=== PATIENT | female | born 1965 | race African-American/Black ===

== ENCOUNTER 2018-04-02 09:19 | Inpatient (IN) | payer OTHER ==
[~2018-04-02 09:19] MED LIST: DEXAMETHASONE SOD PHOS 4 MG/ML VIAL ONE; LACTATED RINGERS 1,000 ML IV.SOLN IV ONE; LIDOCAINE HCL/PF 2% 100 MG/5 ML VIAL IJ ONE; ONDANSETRON HCL/PF 4 MG/ 2ML VIAL ONE; PROPOFOL 200 MG/20 ML VIAL IV ONE; PROPOFOL 500 MG/50 ML VIAL IV ONE; ROCURONIUM BROMIDE 10 MG/ML 5ML VIAL ONE; SCOPOLAMINE HYDROBROMIDE 1.5MG/72HR PATCH TD ONE; SUGAMMADEX 200 mg/2mL 200 MG/2 ML VIAL IV ONE; ceFAZolin SODIUM 1 GM VIAL ONE; diphenhydrAMINE HCL 50 MG/ML VIAL ONE
[2018-04-02] MEDS ORDERED: SCOPOLAMINE HYDROBROMIDE 1.5MG/72HR PATCH TD ONE (09:49)
[2018-04-02] MEDS ORDERED: LEVALBUTEROL HCL 1.25 MG/3 ML AMPUL.NEB NEB ONE (09:52)
[2018-04-02] MEDS ORDERED: FAMOTIDINE/PF 20 MG/2 ML VIAL ONE (09:53)
[2018-04-02] MEDS ORDERED: LACTATED RINGERS 1,000 ML IV ONE (09:53)
[2018-04-02] MEDS ORDERED: ENOXAPARIN SODIUM 40 MG/0.4 ML DISP.SYRIN SQ ONE (10:46)
[2018-04-02] MEDS: MORPHINE SULFATE 4 MG/ML PREFILLED SYR IVP PRN ×3 (15:22→21:02)
[2018-04-02] MEDS ORDERED: 0.9 % SODIUM CHLORIDE 1,000 ML IV SCH (16:00)
--- NOTE | 2018-04-02 16:45 | History and Physical Report ---
History of Present Illnes - History of Present Illness Reason for Visit: Morbid obesity History of Present Illness: Patient with obesity since childhood who has tried dietary programs, medications and exercise to lose weight, but has not been successful in losing any weight. Her current comorbidities that are exacerbated by her obesity are hypertension, type II diabetes, obstructive sleep apnea and dyslipidemia. She presented to [facility] for gastric sleeve and was felt to be a candidate for this procedure. This was preformed in the OR today by Dr Garg, and she had no complications with her case. Her postoperative course has been unremarkable. - Past Medical History Cardiac: HTN, Hyperlipidemia Pulmonary: Sleep Apnea Psych: Anxiety, Depression Musculoskeletal: Chronic low back pain, Osteoarthritis Endocrine: Diabetes, obesity - Past Surgical History Past Surgical History: Hysterectomy, Other (Tubal, hemorrhoid surgery, tubal ligation) - Past Social History Smoke: No Alcohol: None Drugs: None Lives: With Family Domestic Violence: Negative - Health Maintenance Health Maintenance: Cholesterol Influenza Vaccine: Current for this Influenza Season Pneumonia Vaccine: Yes Resuscitation Status: Resusciation Status Resuscitation Status Full Code - Unable to Obtain History Unable to Obtain: Yes Review of Systems - Review of Systems Constitutional: negative: Fever, Chills Eyes: negative: pain ENT: negative: Ear Pain Respiratory: negative: Cough, Dry Cardiovascular: negative: Chest Pain Gastrointestinal: Nausea. negative: Vomiting Genitourinary: negative: Dysuria Musculoskeletal: negative: Neck Pain Skin: negative: Rash, Lesions Neurological: negative: Weakness - Medications/Allergies Allergies/Adverse Reactions: Allergies Allergy/AdvReac Type Severity Reaction Status Date / Time lisinopril AdvReac Cough Verified 04/02/18 16:51 Home Medications: Home Medications Acetaminophen [Tylenol Extra Strength] 500 mg PO Q4 PRN 04/02/18 Allopurinol [Zyloprim] 100 mg PO QD 04/02/18 Atorvastatin Calcium [Lipitor] 40 mg PO HS 04/02/18 Bupropion HCl [Wellbutrin Xl] 300 mg PO D 04/02/18 Bupropion HCl [Wellbutrin Xl] 300 mg PO D 04/02/18 Famotidine [Pepcid] 20 mg PO D PRN 04/02/18 Gabapentin 300 mg PO TID 04/02/18 Glipizide 10 mg PO BID 04/02/18 Insulin Glargine,Hum.rec.anlog [Lantus Solostar] 100 units SQ HS 04/02/18 amLODIPine BESYLATE [Norvasc] 10 mg PO 0900 04/02/18 Current Inpatient Medications: Current Inpatient Medications Sodium Chloride (Normal Saline) 1,000 mls @ 150 mls/hr IV Q6H [facility] Ketorolac Tromethamine (Toradol) 30 mg IVP Q6H PRN PRN Reason: PAIN 1-4 IF CANT USE NORCO Stop: 04/06/18 15:08 Miscellaneous (Patient Own Med) 1 each SQ DAILY [facility] Morphine Sulfate (Depodur) 4 mg IVP Q2H PRN PRN Reason: Severe Pain 8-10 Last Admin: 04/02/18 15:22 Dose: 4 mg Exam - Exam Vital Signs: Vital Signs (72 hours) 04/02/18 14:46 Temperature 99.4 F Pulse Rate [ 104 H Right Pulse ox] Respiratory 22 Rate Blood Pressure 154/90 [Right Radial Artery] O2 Sat by Pulse 98 Oximetry General: Alert (a little sleepy from anesthesia/pain medication), Oriented to Person, Morbidly Obese HEENT: Atraumatic, PERRLA, EOMI Neck: No: Stridor Lungs: Clear to auscultation, Normal air movement, Speaks full Sentences. 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 insulin use: with fdc use Diabetes mellitus complication status: without complication Qualified Code(s): E11.9 - Type 2 diabetes mellitus without complications; Z79.4 - ocean transportation intermediary (current) use of insulin Assessment: Hold glyburide and insulin due to decreased oral intake Plan: Chem sticks (3) Hypertension Status: Acute Current Visit: Yes Qualifiers: Hypertension type: essential hypertension Qualified Code(s): I10 - Essential (primary) hypertension Assessment: Continue amlodipine (4) Depression Status: Acute Current Visit: Yes Qualifiers: Depression Type: major depressive disorder Active/Remission status: currently active Major depression episode severity: moderate Assessment: Continue bupropion (5) Hyperlipemia Status: Acute Current Visit: Yes Qualifiers: Hyperlipidemia type: pure hypercholesterolemia Qualified Code(s): E78.00 - Pure hypercholesterolemia, unspecified; E78.0 - Pure hypercholesterolemia Assessment: Continue Lipitor (6) Obstructive sleep apnea Status: Acute Current Visit: Yes Assessment: Continue CPAP use (7) Gout Status: Acute Current Visit: Yes Qualifiers: Gout site: unspecified site Gout etiology: unspecified cause Chronicity: chronic Presence of tophus: without tophus Qualified Code(s): M1A.9XX0 - Chronic gout, unspecified, without tophus (tophi) Assessment: Continue allopurinol VTE Assessment - RISK FACTOR SCORE VTE RISK FACTOR SCORES: AGE 40-60 YEARS, OBESITY (On Lovenox)
[2018-04-02 16:58] VITALS: BMI 50.8
[2018-04-02] MEDS ORDERED: LEVALBUTEROL HCL 1.25 MG/3 ML VIAL.NEB IH PRN (17:00)
[2018-04-02] MEDS ORDERED: FAMOTIDINE 20 MG TABLET PO SCH (17:00)
[2018-04-02] MEDS ORDERED: ONDANSETRON HCL/PF 4 MG/ 2ML VIAL IVP PRN (17:07)
[2018-04-02] MEDS ORDERED: PROMETHAZINE HCL 25 MG in 0.9 % SODIUM CHLORIDE 50 ML IV PRN (17:09)
[2018-04-02] MEDS ORDERED: HYDROCODONE/ACETAMINOPHEN 15 ML SOLUTION PO PRN (17:11)
[2018-04-02] MEDS: DEXTROSE IV SCH (17:48)
[2018-04-02] MEDS: CEFAZOLIN IV SCH (17:48)
[2018-04-02] MEDS: 0.9 % SODIUM CHLORIDE 1,000 ML IV SCH (17:48)
[2018-04-02] MEDS: GABAPENTIN 300 MG CAPSULE PO SCH (18:37)
[2018-04-02] MEDS: METOPROLOL TARTRATE 25 MG TABLET PO SCH (21:04)
[2018-04-02] MEDS: buPROPion 150 MG TAB.ER.12H PO SCH (21:04)
[2018-04-02] MEDS: traZODone HCL 50 MG TABLET PO SCH (21:04)
[2018-04-02] MEDS: ATORVASTATIN CALCIUM 80 MG TABLET PO SCH (21:30)
[2018-04-02] MEDS: FAMOTIDINE/PF 20 MG/2 ML VIAL IV SCH (21:31)
[2018-04-03] MEDS: CEFAZOLIN IV SCH (02:21)
[2018-04-03] MEDS: DEXTROSE IV SCH (02:21)
[2018-04-03] MEDS: 0.9 % SODIUM CHLORIDE 1,000 ML IV SCH ×4 (02:49→23:08)
[2018-04-03] MEDS: KETOROLAC TROMETHAMINE 30 MG/1ML VIAL IVP PRN (07:56)
[2018-04-03] MEDS: METOPROLOL TARTRATE 25 MG TABLET PO SCH (08:35)
[2018-04-03] MEDS: GABAPENTIN 300 MG CAPSULE PO SCH ×3 (08:36→18:24)
[2018-04-03] MEDS: FAMOTIDINE/PF 20 MG/2 ML VIAL IV SCH ×2 (08:37→21:13)
[2018-04-03] MEDS: ALLOPURINOL 100 MG TABLET PO SCH (08:38)
[2018-04-03] MEDS: buPROPion 150 MG TAB.ER.12H PO SCH (08:39)
[2018-04-03] MEDS ORDERED: amLODIPine BESYLATE 5 MG TABLET PO SCH (09:00)
[2018-04-03] MEDS ORDERED: PATIENT OWN MED 1 EACH EACH SQ SCH (09:00)
[2018-04-03] MEDS ORDERED: ENOXAPARIN SODIUM 40 MG/0.4 ML DISP.SYRIN SQ SCH (09:00)
[2018-04-03 09:28] LABS: BASOPHILS % 0.3 (0.0-1.5); EOSINOPHILS % 0.7 % (0.0-6.8); MONOCYTES % 4.1 % (0.0-11.0)
[2018-04-03 09:29] LABS: NEUTROPHILS # 11.5 # k/uL (1.4-7.7)
[2018-04-03] MEDS ORDERED: 0.9 % SODIUM CHLORIDE 500 ML IV ONE ×2 (11:20→11:30)
--- NOTE | 2018-04-03 11:28 | Inpatient Progress Note ---
Subjective - Required Recertification Statement I anticipate X number of days because-include discharge plan: 1 day - Review of Systems Events since last encounter: Patient states that she has been having some pain in the RUQ area and in generalized abd area. Has been feeling weak. Pain has been moderate. Has not had any flatus. Has been up ambulating last night. Has not ambulated this AM. Has been taking oral intake as ordered. Has had some nausea but no vomiting noted. Patient has been more lethargic this AM with some hallucinations. Objective - Exam Vitals and I&O: Vital Signs Temp 98 F 04/03/18 10:00 Pulse 91 H 04/03/18 10:00 Resp 20 04/03/18 10:00 BP 92/55 04/03/18 10:00 Pulse Ox 93 04/03/18 10:00 Intake & Output 04/02/18 04/02/18 04/03/18 11:59 23:59 11:59 Intake Total 50 2620 Output Total 640 200 Balance -590 2420 Weight 147.418 kg Intake: IV 2200 Left Upper arm 2200 Oral 50 420 Output: Urine 640 200 Other: Voiding Method Toilet Toilet # Voids 2 1 # Bowel Movements 0 General: Alert, Oriented to Person, Oriented to Place, Oriented to Time, Cooperative, Morbidly Obese Neck: Supple Lungs: Clear to auscultation, Normal air movement, Speaks full Sentences. No: Wheezes, Rales, Rhonchi Cardiovascular: Regular rate, Normal S1, Normal S2, No murmurs Abdomen: Soft, Other (mild diffuse tenderness noted), Decreased Bowel Sounds. No: Distended Extremities: No clubbing, No cyanosis, No edema, Normal pulses Skin: Normal, Warm Neurological: Normal speech, Strength Equal Bilat Psych/Mental Status: Mental status NL (mildlylethargic), Mood NL, Appropriate Affect, Intact Judgment - Results Results: Laboratory Results WBC 13.50 K/ul (4.00-12.00) H 04/03/18 08:14 RBC 3.00 M/ul (3.90-5.20) L 04/03/18 08:14 Hgb 9.6 g/dL (12.0-16.0) L 04/03/18 08:14 Hct 28.3 % (34.5-46.5) L 04/03/18 08:14 MCV 94.0 fl (80.0-100.0) 04/03/18 08:14 MCH 32.0 pg (28.0-34.0) 04/03/18 08:14 MCHC 33.8 g/dL (30.0-36.0) 04/03/18 08:14 RDW 13.0 % (11.3-14.3) 04/03/18 08:14 Plt Count 235 K/mm3 (130-400) 04/03/18 08:14 Neut % (Auto) 85.2 % (39.0-79.0) H 04/03/18 08:14 Lymph % (Auto) 9.7 % (16.0-50.0) L 04/03/18 08:14 [place] % (Auto) 4.1 % (0.0-11.0) 04/03/18 08:14 Eos % (Auto) 0.7 % (0.0-6.8) 04/03/18 08:14 Baso % (Auto) 0.3 (0.0-1.5) 04/03/18 08:14 Neut # (Auto) 11.5 # k/uL (1.4-7.7) H 04/03/18 08:14 Lymph # (Auto) 1.3 # k/uL (0.6-4.0) 04/03/18 08:14 [place] # (Auto) 0.6 # k/uL (0.0-0.9) 04/03/18 08:14 Eos # (Auto) 0.1 # k/uL (0.0-0.6) 04/03/18 08:14 Baso # (Auto) 0.0 # k/uL (0.0-0.5) 04/03/18 08:14 Sodium 135 mmol/L (136-145) L 04/03/18 08:14 Potassium 4.8 mmol/L (3.5-5.1) 04/03/18 08:14 Chloride 103 mmol/L (98-107) 04/03/18 08:14 Carbon Dioxide 21 mmol/L (22-30) L 04/03/18 08:14 BUN 18 mg/dL (7-17) H 04/03/18 08:14 Creatinine 2.70 mg/dL (0.52-1.04) H 04/03/18 08:14 Estimated Creat Clear 65 04/03/18 08:14 Est GFR ( Amer) 24 (60-) L 04/03/18 08:14 Est GFR (Non-Af Amer) 20 (60-) L 04/03/18 08:14 Glucose 221 mg/dL (74-106) H 04/03/18 08:14 Calcium 8.4 mg/dL (8.4-10.2) 04/03/18 08:14 Total Bilirubin 0.7 mg/dL (0.2-1.3) 04/03/18 08:14 AST 70 U/L (15-46) H 04/03/18 08:14 ALT 80 U/L (13-69) H 04/03/18 08:14 Alkaline Phosphatase 74 U/L (38-126) 04/03/18 08:14 Total Protein 6.6 g/dL (6.3-8.2) 04/03/18 08:14 Albumin 3.4 g/dL (3.5-5.0) L 04/03/18 08:14 Assessment/Plan - Assessment/Plan (1) Morbid obesity Status: Acute Current Visit: Yes Assessment: POD #1 Patient is ambulatory, taking oral intake. Of concern is that her Hgb has dropped to 9.6 from preop of 12. Patient is not tachycardic at this time. I have called Dr Garg and he did not feel that she would be having any bleeding problems. He advised to monitor and recheck in AM. I have ordered H/H for 1600 today. (2) Depression Status: Acute Current Visit: Yes Qualifiers: Depression Type: major depressive disorder Active/Remission status: currently active Major depression episode severity: moderate Assessment: Has had bupropion this AM. This may be causing some lethargy and hallucinations. Will hold for now. (3) Diabetes mellitus Status: Acute Current Visit: Yes Qualifiers: Diabetes mellitus type: type 2 Diabetes mellitus usp insulin use: with usp use Diabetes mellitus complication status: without complication Qualified Code(s): E11.9 - Type 2 diabetes mellitus without complications; Z79.4 - half-way (current) use of insulin Assessment: BS have been in the 150-200 range. No hypoglycemic episdoes noted. (4) Hypertension Status: Acute Current Visit: Yes Qualifiers: Hypertension type: essential hypertension Qualified Code(s): I10 - Essential (primary) hypertension Assessment: Patient's systolic BP has been running in the 90-100 range. Will continue to monitor.
[2018-04-03] MEDS ORDERED: 0.9 % SODIUM CHLORIDE 1,000 ML IV SCH ×2 (11:30→13:00)
[2018-04-03 11:38] LABS: BASOPHILS % 0.3 (0.0-1.5); EOSINOPHILS % 0.9 % (0.0-6.8); MEAN CORPUSCULAR HEMOGLOBIN 31.4 pg (28.0-34.0); MONOCYTES % 4.2 % (0.0-11.0); NEUTROPHILS # 12.6 # k/uL (1.4-7.7)
[2018-04-03 17:25] LABS: MEAN CORPUSCULAR HEMOGLOBIN 31.5 pg (28.0-34.0)
[2018-04-03 17:26] LABS: BASOPHILS % 0.3 (0.0-1.5); EOSINOPHILS % 1.2 % (0.0-6.8); MONOCYTES % 4.7 % (0.0-11.0); NEUTROPHILS # 13.6 # k/uL (1.4-7.7)
[2018-04-03] MEDS: traZODone HCL 50 MG TABLET PO SCH (20:57)
[2018-04-03] MEDS: ATORVASTATIN CALCIUM 80 MG TABLET PO SCH (21:13)
[2018-04-04] MEDS: KETOROLAC TROMETHAMINE 30 MG/1ML VIAL IVP PRN (00:38)
[2018-04-04 07:37] LABS: BASOPHILS % 0.3 (0.0-1.5); EOSINOPHILS % 1.1 % (0.0-6.8); MEAN CORPUSCULAR HEMOGLOBIN 31.7 pg (28.0-34.0); MONOCYTES % 4.8 % (0.0-11.0); NEUTROPHILS # 8.4 # k/uL (1.4-7.7)
[2018-04-04] MEDS ORDERED: 0.9 % SODIUM CHLORIDE 50 ML IV ONE (08:35)
[2018-04-04] MEDS: FAMOTIDINE/PF 20 MG/2 ML VIAL IV SCH (08:42)
[2018-04-04] MEDS: ALLOPURINOL 100 MG TABLET PO SCH (08:42)
[2018-04-04] MEDS: GABAPENTIN 300 MG CAPSULE PO SCH ×3 (08:42→17:43)
--- NOTE | 2018-04-04 09:46 | Inpatient Progress Note ---
Subjective - Required Recertification Statement I anticipate X number of days because-include discharge plan: 2 days - Review of Systems Events since last encounter: This AM patient became hypotensive with systolic into the 70s. Patient tolerated it well and was lucent. recheck HG was found to be 8.9. Patient was given Amlodipine 10mg and metoprolol 25mg this AM and then her blood pressure dropped. She was also noted to have an elevated Creatinine of 2.7. After conferring with Dr Garg it was felt that the patient may be dehydrated some and with lower systolic BP at baseline and then given BP med that that was what was causing her hypotension. After 1500 cc bolus her BP did start to improve. Her mentation improved also. Patient seems to be feeling better at this time. Objective - Exam Vitals and I&O: Vital Signs Temp 100.1 F H 04/04/18 09:27 Pulse 98 H 04/04/18 09:27 Resp 16 04/04/18 09:27 BP 99/61 04/04/18 09:27 Pulse Ox 92 04/04/18 09:27 Intake & Output 04/03/18 04/03/18 04/04/18 11:59 23:59 11:59 Intake Total 2620 3310 1365 Output Total 200 240 150 Balance 2420 3070 1215 Intake: IV 2200 2950 975 Left Upper arm 2200 500 0 right AC 2450 975 Oral 420 360 390 Output: Urine 200 240 150 Other: Voiding Method Toilet Toilet Toilet # Voids 1 1 2 General: Alert, Oriented to Person, Oriented to Place, Oriented to Time Lungs: Clear to auscultation Cardiovascular: Regular rate - Results Results: Laboratory Results WBC 11.40 K/ul (4.00-12.00) 04/04/18 07:30 RBC 2.33 M/ul (3.90-5.20) L 04/04/18 07:30 Hgb 7.4 g/dL (12.0-16.0) L 04/04/18 07:30 Hct 21.9 % (34.5-46.5) L 04/04/18 07:30 MCV 94.0 fl (80.0-100.0) 04/04/18 07:30 MCH 31.7 pg (28.0-34.0) 04/04/18 07:30 MCHC 33.6 g/dL (30.0-36.0) 04/04/18 07:30 RDW 13.1 % (11.3-14.3) 04/04/18 07:30 Plt Count 169 K/mm3 (130-400) 04/04/18 07:30 Neut % (Auto) 73.4 % (39.0-79.0) 04/04/18 07:30 Lymph % (Auto) 20.4 % (16.0-50.0) 04/04/18 07:30 [place] % (Auto) 4.8 % (0.0-11.0) 04/04/18 07:30 Eos % (Auto) 1.1 % (0.0-6.8) 04/04/18 07:30 Baso % (Auto) 0.3 (0.0-1.5) 04/04/18 07:30 Neut # (Auto) 8.4 # k/uL (1.4-7.7) H 04/04/18 07:30 Lymph # (Auto) 2.3 # k/uL (0.6-4.0) 04/04/18 07:30 [place] # (Auto) 0.6 # k/uL (0.0-0.9) 04/04/18 07:30 Eos # (Auto) 0.1 # k/uL (0.0-0.6) 04/04/18 07:30 Baso # (Auto) 0.0 # k/uL (0.0-0.5) 04/04/18 07:30 Sodium 137 mmol/L (136-145) 04/04/18 07:30 Potassium 4.1 mmol/L (3.5-5.1) 04/04/18 07:30 Chloride 108 mmol/L (98-107) H 04/04/18 07:30 Carbon Dioxide 24 mmol/L (22-30) 04/04/18 07:30 BUN 26 mg/dL (7-17) H 04/04/18 07:30 Creatinine 2.40 mg/dL (0.52-1.04) H 04/04/18 07:30 Estimated Creat Clear 74 12 07:30 Est GFR ( Amer) 27 (60-) L 04/04/18 07:30 Est GFR (Non-Af Amer) 22 (60-) L 04/04/18 07:30 Glucose 164 mg/dL (74-106) H 04/04/18 07:30 Calcium 7.7 mg/dL (8.4-10.2) L 04/04/18 07:30 Total Bilirubin 0.7 mg/dL (0.2-1.3) 04/03/18 08:14 AST 70 U/L (15-46) H 04/03/18 08:14 ALT 80 U/L (13-69) H 04/03/18 08:14 Alkaline Phosphatase 74 U/L (38-126) 04/03/18 08:14 Total Protein 6.6 g/dL (6.3-8.2) 04/03/18 08:14 Albumin 3.4 g/dL (3.5-5.0) L 04/03/18 08:14 Assessment/Plan - Assessment/Plan (1) Morbid obesity Status: Acute Current Visit: Yes (2) Depression Status: Acute Current Visit: Yes Qualifiers: Depression Type: major depressive disorder Active/Remission status: currently active Major depression episode severity: moderate (3) Diabetes mellitus Status: Acute Current Visit: Yes Qualifiers: Diabetes mellitus type: type 2 Diabetes mellitus care home insulin use: with care home use Diabetes mellitus complication status: without complication Qualified Code(s): E11.9 - Type 2 diabetes mellitus without complications; 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 Will continue to monitor. BP meds have been discontinued. Awaiting results from CBC
--- NOTE | 2018-04-04 11:31 | Inpatient Progress Note ---
Subjective - Required Recertification Statement I anticipate X number of days because-include discharge plan: 1 - Review of Systems Events since last encounter: Patient is clinically improved. Her pain continues to improve. She has now been able to get up and walk, however her hemoglobin as dropped from 9.0 to 7.4 today, and her renal function remains much compromised. I have spoken with Dr. Garg and he has recommended a CT scan without contrast which has now been ordered. He is considering giving her some O negative blood. Lab cannot currently type and screen, so type specific crossmatch cannot be accomplished currently. He also states that he will come and see her today. She is currently down having her CT scan done. General: Fatigue. Denies: Chills, Night Sweats HEENT: Denies: Head Aches, Visual Changes Pulmonary: Denies: Dyspnea, Cough Cardiovascular: Chest Pain (left sided, much better now.) Gastrointestinal: Nausea, Abdominal Pain (lower abdominal). Denies: Vomiting Genitourinary: Denies: Dysuria, Frequency Musculoskeletal: Denies: Neck Pain Neurological: Weakness. Denies: Change in Speech Objective - Exam Vitals and I&O: Vital Signs Temp 100.1 F H 04/04/18 09:27 Pulse 98 H 04/04/18 09:27 Resp 16 04/04/18 09:27 BP 99/61 04/04/18 09:27 Pulse Ox 92 04/04/18 09:27 Intake & Output 04/03/18 04/03/18 04/04/18 11:59 23:59 11:59 Intake Total 2620 3310 1905 Output Total 200 240 150 Balance 2420 3070 1755 Intake: IV 2200 2950 1425 Left Upper arm 2200 500 450 right AC 2450 975 Oral 420 360 480 Output: Urine 200 240 150 Other: Voiding Method Toilet Toilet Toilet # Voids 1 1 2 General: Alert, Oriented to Person, Oriented to Place, Moderate distress (due to abdomnina pain), Morbidly Obese HEENT: Atraumatic, PERRLA, EOMI Neck: Supple, No JVD Lungs: Decreased Air Movement Cardiovascular: Regular rate Abdomen: Normal bowel sounds, Soft Extremities: No: No clubbing, No cyanosis Skin: Normal, Pale Neurological: Normal speech Psych/Mental Status: Mental status NL - Results Results: Laboratory Results WBC 11.40 K/ul (4.00-12.00) 04/04/18 07:30 RBC 2.33 M/ul (3.90-5.20) L 04/04/18 07:30 Hgb 7.4 g/dL (12.0-16.0) L 04/04/18 07:30 Hct 21.9 % (34.5-46.5) L 04/04/18 07:30 MCV 94.0 fl (80.0-100.0) 04/04/18 07:30 MCH 31.7 pg (28.0-34.0) 04/04/18 07:30 MCHC 33.6 g/dL (30.0-36.0) 04/04/18 07:30 RDW 13.1 % (11.3-14.3) 04/04/18 07:30 Plt Count 169 K/mm3 (130-400) 04/04/18 07:30 Neut % (Auto) 73.4 % (39.0-79.0) 04/04/18 07:30 Lymph % (Auto) 20.4 % (16.0-50.0) 04/04/18 07:30 [place] % (Auto) 4.8 % (0.0-11.0) 04/04/18 07:30 Eos % (Auto) 1.1 % (0.0-6.8) 04/04/18 07:30 Baso % (Auto) 0.3 (0.0-1.5) 04/04/18 07:30 Neut # (Auto) 8.4 # k/uL (1.4-7.7) H 04/04/18 07:30 Lymph # (Auto) 2.3 # k/uL (0.6-4.0) 04/04/18 07:30 [place] # (Auto) 0.6 # k/uL (0.0-0.9) 04/04/18 07:30 Eos # (Auto) 0.1 # k/uL (0.0-0.6) 04/04/18 07:30 Baso # (Auto) 0.0 # k/uL (0.0-0.5) 04/04/18 07:30 Sodium 137 mmol/L (136-145) 04/04/18 07:30 Potassium 4.1 mmol/L (3.5-5.1) 04/04/18 07:30 Chloride 108 mmol/L (98-107) H 04/04/18 07:30 Carbon Dioxide 24 mmol/L (22-30) 04/04/18 07:30 BUN 26 mg/dL (7-17) H 04/04/18 07:30 Creatinine 2.40 mg/dL (0.52-1.04) H 04/04/18 07:30 Estimated Creat Clear 74 04/04/18 07:30 Est GFR ( Amer) 27 (60-) L 04/04/18 07:30 Est GFR (Non-Af Amer) 22 (60-) L 04/04/18 07:30 Glucose 164 mg/dL (74-106) H 04/04/18 07:30 Calcium 7.7 mg/dL (8.4-10.2) L 04/04/18 07:30 Total Bilirubin 0.7 mg/dL (0.2-1.3) 04/03/18 08:14 AST 70 U/L (15-46) H 04/03/18 08:14 ALT 80 U/L (13-69) H 04/03/18 08:14 Alkaline Phosphatase 74 U/L (38-126) 04/03/18 08:14 Total Protein 6.6 g/dL (6.3-8.2) 04/03/18 08:14 Albumin 3.4 g/dL (3.5-5.0) L 04/03/18 08:14 Assessment/Plan - Assessment/Plan (1) Morbid obesity Status: Acute Current Visit: Yes Assessment: S/P gastric sleeve, now with postoperative anemia and compromised renal function (2) Diabetes mellitus Status: Acute Current Visit: Yes Qualifiers: Diabetes mellitus type: type 2 Diabetes mellitus docket specialist insulin use: with docket specialist use Diabetes mellitus complication status: without complication Qualified Code(s): E11.9 - Type 2 diabetes mellitus without complications; Z79.4 - nursing home (current) use of insulin Assessment: Still hypoglycemic (3) Hypertension Status: Acute Current Visit: Yes Qualifiers: Hypertension type: essential hypertension Qualified Code(s): I10 - Essential (primary) hypertension (4) Depression Status: Acute Current Visit: Yes Qualifiers: Depression Type: major depressive disorder Active/Remission status: currently active Major depression episode severity: moderate (5) Hyperlipemia Status: Acute Current Visit: Yes Qualifiers: Hyperlipidemia type: pure hypercholesterolemia Qualified Code(s): E78.00 - Pure hypercholesterolemia, unspecified; E78.0 - Pure hypercholesterolemia (6) Obstructive sleep apnea Status: Acute Current Visit: Yes (7) Gout Status: Acute Current Visit: Yes Qualifiers: Gout site: unspecified site Gout etiology: unspecified cause Chronicity: chronic Presence of tophus: without tophus Qualified Code(s): M1A.9XX0 - Chronic gout, unspecified, without tophus (tophi) (8) Postoperative anemia Status: Acute Current Visit: Yes Assessment: CT scan just performed, awaiting results Dr. Garg to see today.
[2018-04-04 15:15] LABS: MEAN CORPUSCULAR HEMOGLOBIN 31.7 pg (28.0-34.0)
[2018-04-04] MEDS ORDERED: ACETAMINOPHEN 325 MG TABLET PO PRN (15:34)
[2018-04-04] MEDS: 0.9 % SODIUM CHLORIDE 1,000 ML IV SCH ×4 (15:36→23:24)
[2018-04-04] MEDS ORDERED: DIPHENHYDRAMINE HCL 25 MG/10 ML UD CUP PO SCH (16:00)
--- NOTE | 2018-04-04 16:19 | Diagnostic Imaging Report ---
[facility]MED [facility]G [facility] [id number] Counts Include [address] Beds At [facility] [address] [place], [place]. [address] Report Submission Date: Apr 04, 2018 12:51:18 PM MACHINE STEMMER Patient Study Name: MISA LEE Date: Apr 04, 2018 11:45:05 AM MACHINE STEMMER Modality Type: CT\SR Gender: F Description: CT ABD PELVIS W/O CO : 65 Institution: [facility] Physician: [facility]/MED SURG Examination: CT Abdomen/pelvis History: GASTRIC SLEEVE SURGERY ON 04/02/18. PT STATES TUBAL LIGATION AND NO OTHER SURGERIES. CREATININE 2.4 (Hx) dropping Hgb Comparison exams: None available Technique: CT Abdomen/pelvis without IV protocol. Findings: Liver, spleen, adrenals, pancreas and kidneys are without gross irregularity given exam technique. Gallbladder hyperdense. Punctate right renal calyceal calcifications. No suspicious left-sided calcifications. Ureters are nondilated in their course through the abdomen and pelvis. No central calcifications. Bladder margin within normal limits. Pelvic phleboliths. Abdominal aorta without aneurysm. Minimal peripheral atherosclerotic disease. Cardiac silhouette is not enlarged. No pericardial effusion. Upper abdominal postsurgical changes involving the gastric region. Conglomeration of unopacified bowel within the mid anterior abdomen. Remaining bowel without abnormal dilation. Mesenteric stranding and likely fluid within the mid abdominal mesenteric region and adjacent to the cecum. Anterior soft tissue postsurgical changes. Osseous structures demonstrate degenerative changes. Lung bases demonstrate linear densities bilaterally. No effusion. Impression: Gastric region postsurgical changes. Abdominal mesenteric stranding and regions what is of what is likely fluid as described - nonspecific etiology: possibly represents residual postsurgical changes though acute process cannot be excluded. No acute upper abdominal organ process. Hyperdense gallbladder. Right nephrolithiasis. No abnormal ureteric dilation. Lung base linear infiltrates. No effusion. Electronically signed on Apr 04, 2018 12:51:18 PM MACHINE STEMMER by: Malcolm DESAI
[2018-04-04] MEDS ORDERED: cefTRIAXone SODIUM 1 GM in 0.9 % SODIUM CHLORIDE 100 ML IV SCH (20:00)
[2018-04-04] MEDS ORDERED: cefTRIAXone SODIUM 1 GM VIAL ONE (20:35)
[2018-04-04] MEDS: ATORVASTATIN CALCIUM 80 MG TABLET PO SCH (20:43)
[2018-04-04] MEDS: traZODone HCL 50 MG TABLET PO SCH (20:43)
[2018-04-05] MEDS: 0.9 % SODIUM CHLORIDE 1,000 ML IV SCH ×4 (05:29→20:01)
[2018-04-05 08:11] LABS: MEAN CORPUSCULAR HEMOGLOBIN 31.9 pg (28.0-34.0)
[2018-04-05] MEDS: HYDROCODONE/ACETAMINOPHEN 15 ML SOLUTION PO PRN ×3 (08:42→17:46)
[2018-04-05] MEDS: GABAPENTIN 300 MG CAPSULE PO SCH ×3 (10:05→17:46)
[2018-04-05] MEDS: ALLOPURINOL 100 MG TABLET PO SCH (10:05)
--- NOTE | 2018-04-05 10:05 | Diagnostic Imaging Report ---
[facility] [address] [facility] [address] [address] Report Submission Date: Apr 05, 2018 10:04:15 AM SCREW MACHINE TENDER Patient Study Name: MISA LEE Date: Apr 05, 2018 9:40:15 AM SCREW MACHINE TENDER Modality Type: DX Gender: F Description: CHEST : 65 Institution: [facility] Physician: [facility] Ap portable upright radiographs of the chest Clinical history: Cough and short of breath Technique: anterior /posterior portable upright Findings: The lung mcghee show linear atelectasis in both lungs. The. The heart and mediastinal structures are normal. The bony thorax is unremarkable. No pneumothorax or pleural effusion is seen. Impression: Linear atelectasis in both lungs otherwise negative study Electronically signed on Apr 05, 2018 10:04:15 AM SCREW MACHINE TENDER by: Jorge DESAI
--- NOTE | 2018-04-05 11:35 | Inpatient Progress Note ---
Subjective - Required Recertification Statement I anticipate X number of days because-include discharge plan: 1 day - Review of Systems Events since last encounter: Patient continues to show clinical improvement. Patient states she is having more abdominal pain today that she has yesterday. Described it is been more crampy in nature. Patient has had very little flatus and has not had a bowel movement yet. Patient has been mildly nauseated but is been taking oral intake well. Patient states she is urinating well at this time. Patient blood pressure has improved in the hundred and 20 systolic. Patient did not have any static symptoms at this time. Patient is not had any hematuria. Patient did run a low-grade fever last night. However with the deep breathing and taking the covers off her temperature drop from one over 101.5 to 97.4 in 5 minutes. Patient has remained afebrile since that time. Objective - Exam Vitals and I&O: Vital Signs Temp 98.6 F 04/05/18 10:00 Pulse 94 H 04/05/18 10:00 Resp 18 04/05/18 06:00 BP 68/36 04/05/18 10:00 Pulse Ox 94 04/05/18 10:20 Intake & Output 04/04/18 04/04/18 04/05/18 11:59 23:59 11:59 Intake Total 1905 2254 1960 Output Total 150 3000 300 Balance 1755 -746 1660 Intake: IV 1425 1454 1960 Left Upper arm 646 467 9943 right AC 975 826 450 Oral 480 800 Output: Urine 150 3000 300 Other: Voiding Method Toilet Toilet Toilet # Voids 2 1 General: Alert, Oriented to Person, Oriented to Place, Oriented to Time, Cooperative, Mild distress Neck: Supple, No JVD Lungs: Clear to auscultation, Normal air movement, Speaks full Sentences. No: Wheezes, Rales, Rhonchi Cardiovascular: Regular rate, Normal S1, Normal S2, No murmurs Abdomen: Soft, Other (mild diffuse tenderness in the upper quadrants bilaterally), Decreased Bowel Sounds (improving). No: Distended Extremities: No clubbing, No cyanosis, No edema Skin: Normal, Alligator, Warm, Dry - Results Results: Laboratory Results WBC 9.90 K/ul (4.00-12.00) 04/05/18 06:00 RBC 2.41 M/ul (3.90-5.20) L 04/05/18 06:00 Hgb 7.7 g/dL (12.0-16.0) L 04/05/18 06:00 Hct 22.7 % (34.5-46.5) L 04/05/18 06:00 MCV 94.0 fl (80.0-100.0) 04/05/18 06:00 MCH 31.9 pg (28.0-34.0) 04/05/18 06:00 MCHC 33.8 g/dL (30.0-36.0) 04/05/18 06:00 RDW 12.8 % (11.3-14.3) 04/05/18 06:00 Plt Count 180 K/mm3 (130-400) 04/05/18 06:00 Neut % (Auto) 73.4 % (39.0-79.0) 04/04/18 07:30 Lymph % (Auto) 20.4 % (16.0-50.0) 04/04/18 07:30 [place] % (Auto) 4.8 % (0.0-11.0) 04/04/18 07:30 Eos % (Auto) 1.1 % (0.0-6.8) 04/04/18 07:30 Baso % (Auto) 0.3 (0.0-1.5) 04/04/18 07:30 Neut # (Auto) 8.4 # k/uL (1.4-7.7) H 04/04/18 07:30 Lymph # (Auto) 2.3 # k/uL (0.6-4.0) 04/04/18 07:30 [place] # (Auto) 0.6 # k/uL (0.0-0.9) 04/04/18 07:30 Eos # (Auto) 0.1 # k/uL (0.0-0.6) 04/04/18 07:30 Baso # (Auto) 0.0 # k/uL (0.0-0.5) 04/04/18 07:30 Sodium 138 mmol/L (136-145) 04/05/18 06:00 Potassium 4.0 mmol/L (3.5-5.1) 04/05/18 06:00 Chloride 110 mmol/L (98-107) H 04/05/18 06:00 Carbon Dioxide 26 mmol/L (22-30) 04/05/18 06:00 BUN 11 mg/dL (7-17) 04/05/18 06:00 Creatinine 1.00 mg/dL (0.52-1.04) 04/05/18 06:00 Estimated Creat Clear 178 04/05/18 06:00 Est GFR ( Amer) 74 (60-) 04/05/18 06:00 Est GFR (Non-Af Amer) 79 (60-) 04/05/18 06:00 Glucose 160 mg/dL (74-106) H 04/05/18 06:00 Lactate 1.3 U/L (0.7-2.1) 04/04/18 Unknown Calcium 8.1 mg/dL (8.4-10.2) L 04/05/18 06:00 Total Bilirubin 0.5 mg/dL (0.2-1.3) 04/05/18 06:00 AST 74 U/L (15-46) H 04/05/18 06:00 ALT 79 U/L (13-69) H 04/05/18 06:00 Alkaline Phosphatase 69 U/L (38-126) 04/05/18 06:00 Total Protein 6.1 g/dL (6.3-8.2) L 04/05/18 06:00 Albumin 3.0 g/dL (3.5-5.0) L 04/05/18 06:00 Assessment/Plan - Assessment/Plan (1) Morbid obesity Status: Acute Current Visit: Yes Assessment: Status post gastric sleeve procedure. Patient pain does seem to be slowly improving. Patient has had good oral intake. 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 Patient is not had any hypoglycemic episodes. Patient glipizide has been held at times. Will decrease patient glipizide dose to 5 mg BID. (3) Hypertension Status: Acute Current Visit: Yes Qualifiers: Hypertension type: essential hypertension Qualified Code(s): I10 - Essential (primary) hypertension Assessment: Patient hypotension has improved. Systolic blood pressure is not pain in the 110-130 range. Patient is not had any orthostatic blood pressure changes this morning. (4) Depression Status: Acute Current Visit: Yes Qualifiers: Depression Type: major depressive disorder Active/Remission status: currently active Major depression episode severity: moderate (5) Elevated liver function tests Status: Acute Current Visit: Yes (6) Acute kidney failure Status: Acute Current Visit: Yes Assessment: It is felt that the patient to acute kidney disease is prerenal and related to dehydration issues. Patient creatinine and BUN have returned back to within normal range. (7) Anemia Status: Acute Current Visit: Yes Assessment: Patient does not seem to be having any third states collection of blood. I cannot find any hematoma or swelling to the patient skin. Patient was transfused when unit of packed RBCs yesterday. Patient hemoglobin have improved to 7.7. (8) Hypoxemia Status: Acute Current Visit: Yes Assessment: Patient has been having some hypoxemia at night. However patient has not been wearing her CPAP for her sleep apnea. Patient hypoxemia during the day does di ssipate is she takes deep breath. Patient was encouraged to continue to use the insprometry. Chest x-ray done today did not show any pneumonia. There was some slight light atelectasis noted. Patient does have a productive cough of some clear to slightly green phlegm. Patient has been placed on antibiotic therapy empirically for possible bronchitis.
[2018-04-05] MEDS: PATIENT OWN MED 1 EACH EACH PO SCH (11:39)
[2018-04-05] MEDS ORDERED: cefTRIAXone SODIUM 1 GM VIAL ONE (19:02)
[2018-04-05] MEDS ORDERED: 0.9 % SODIUM CHLORIDE 100 ML IV ONE (19:03)
[2018-04-05] MEDS: ATORVASTATIN CALCIUM 80 MG TABLET PO SCH (20:00)
[2018-04-05] MEDS: traZODone HCL 50 MG TABLET PO SCH (20:00)
[2018-04-05] MEDS ORDERED: cefTRIAXone SODIUM 1 GM in 0.9 % SODIUM CHLORIDE 100 ML IV SCH (20:00)
[2018-04-06] MEDS: HYDROCODONE/ACETAMINOPHEN 15 ML SOLUTION PO PRN ×2 (01:48→08:14)
[2018-04-06] MEDS: 0.9 % SODIUM CHLORIDE 1,000 ML IV SCH (01:54)
[2018-04-06 07:53] LABS: MEAN CORPUSCULAR HEMOGLOBIN 31.8 pg (28.0-34.0)
[2018-04-06 07:54] LABS: BASOPHILS % 0.2 (0.0-1.5); EOSINOPHILS % 3.4 % (0.0-6.8); MONOCYTES % 3.9 % (0.0-11.0); NEUTROPHILS # 5.6 # k/uL (1.4-7.7)
[2018-04-06] MEDS: ALLOPURINOL 100 MG TABLET PO SCH (08:10)
[2018-04-06] MEDS: GABAPENTIN 300 MG CAPSULE PO SCH (08:11)
[2018-04-06] MEDS: PATIENT OWN MED 1 EACH EACH PO SCH (08:11)
[2018-04-06 08:24] LABS: eGFR (Non-African) > 60
[2018-04-06 08:29] VITALS: BP 128/87
[2018-04-06 14:52] LABS: APPEARANCE,URINE CLOUDY (CLEAR); COLOR,URINE YELLOW (YELLOW); OCCULT BLOOD,URINE NEGATIVE (NEGATIVE); PH URINE 6.5 (5.0 - 8.0); UROBILINOGEN URINE 0.2 Eu (0.2-1.0)
--- NOTE | 2018-04-07 07:41 | Discharge Summary ---
Discharge Summary - Discharge Sumary History of Present Illness: Patient with obesity since childhood who has tried dietary programs, medications and exercise to lose weight, but has not been successful in losing any weight. Her current comorbidities that are exacerbated by her obesity are hypertension, type II diabetes, obstructive sleep apnea and dyslipidemia. She presented to [facility] for evaluation for gastric sleeve and was felt to be a candidate for this procedure. This was preformed in the OR today by Dr Garg, and she had no complications with her case. Her postoperative course has been unremarkable at the time of admission to the floor. Condition at Discharge: Stable Home Medications: Ambulatory Orders Medication Instructions Recorded Acetaminophen [Tylenol Extra 500 mg PO Q4 PRN 04/02/18 Strength] Allopurinol [Zyloprim] 100 mg PO QD 04/02/18 Atorvastatin Calcium [Lipitor] 40 mg PO HS 04/02/18 Bupropion HCl [Wellbutrin Xl] 300 mg PO D 04/02/18 Bupropion HCl [Wellbutrin Xl] 300 mg PO D 04/02/18 Famotidine [Pepcid] 20 mg PO D PRN 04/02/18 Gabapentin 300 mg PO TID 04/02/18 Glipizide 5 mg PO BID #0 04/05/18 Hydrocodone/Acetaminophen 10 ml PO Q6 #250 ml 04/05/18 [Hydrocodone-Acetamn 7.5-325/15] Promethazine HCl 12.5 mg PO Q6 #250 ml 04/05/18 Cefdinir [Omnicef] 300 mg PO BID #10 capsule 04/06/18 Ferrous Sulfate 325 mg PO BID #60 tablet 04/06/18 Consultations this Visit: None Procedures this Visit: Other (Gastric sleeve) Allergies/Adverse Reactions: Allergies Allergy/AdvReac Type Severity Reaction Status Date / Time lisinopril AdvReac Cough Verified 04/02/18 16:51 Discharge Summary: During the first 12 hours postoperatively patient was stable. Patient blood pressure was a little soft with a systolic running in the 90-100 range. On the first postoperative day patient did have a CBC done which showed a hemoglobin to be 8.9. Preop hemoglobin was in the low 12s. Patient did not have any obvious signs of bleeding. A repeat hemoglobin that evening showed to be 9.0. By the next morning and did drop down to 7.4. For the rest of the hospital course patient hemoglobin did remain between 7.[address] scan of the abdomen was done and did not show any evidence of in the intra-abdominal bleeding. Patient did have some nausea but did not have any hematemesis. Blood was not able to be typed and crossed secondary to laboratory issues. On the first postoperative day patient blood pressure did drop down into the 70s systolic. This was after she was given her routine blood pressure medications. It was felt that the hypertension was related to her surgery, blood pressure medication, and possible mild dehydration. Patient blood pressure medication for health. Patient blood pressure did improve to the systolic in the 90s within eight hours. At the time of dismissal patient blood pressure was running systolic 120-140. Patient is diabetic. Patient was given glipizide for her diabetes during her hospitalization. This was decrease from the dose of 10 mg BID to 5 mg BID. Patient blood sugars remained in the low to mid 100 range. Patient did not have any hypoglycemic episodes. On the first postoperative day patient creatinine was noted to be 2.7. It did increase up to 3.1. At the time to discharge however it had normalized at 0.8. Patient was noted to have some mildly elevated liver function tests but patient stated that she has a history of fatty liver disease with mildly elevated liver function test in the past. Patient did have some mild hypoxia during her hospital records. During the evening and nighttime her pulse ox did drop down to 8588%. However patient has obstructive sleep apnea and did not bring her CPAP with her. Patient did developed a mild cough. Patient was started on Rocephin 1 g IV Q day for possible developing bronchitis.Chest x-ray was done and did not show any acute pathology. At the time to discharge patient was ambulating with minimal pain. Patient with not have any orthostatic symptoms. It was felt that the patient could be placed on and therapy and discharged home. Patient with is vied to call or return to the hospital that she had any further problems. Patient has follow up scheduled. - Final Diagnosis (1) Morbid obesity Problems: s/p gastric sleeve (2) Diabetes mellitus Problems: Patient was discontinued off of her Victoza and her glipizide was decreased to 5mg BID. Her blood sugar remained stable in the 1500-180 range. Patient did not have any hypoglycemic episodes. (3) Hypertension Problems: at the time of discharge BP was stable off her home BP meds (4) Depression Problems: stable on home meds (6) Acute kidney failure Problems: [place] to be prerenal. This had resloved by dischage with normal BUN and cr eatinine (7) Anemia Problems: No source of avtive bleeding could be found. Patient's hemoglobin was remaining stable in the 7s for 2 days prior to discharge (8) Hypoxemia Problems: resolved with incentinve spirometry and encouraging deep breathing.
== END 2018-04-06 10:45 | disposition home or self-care (01) | DRG 812 ==
LOC: OPSURG 09:19 → SOUTH 14:10
PROVIDERS: ADMIT Family Medicine; ATTEND Family Medicine
DX: D64.9 Anemia, unspecified (principal)
CPT/HCPCS: 36415; 71046; 74176; 80048; 80053; 81002; 83605; 85025; 85027; 99232; J0690; J0696; J1100; J1200; J1650; J1885; J2001; J2270; J2405; J2704; J7060; J7614; S0028; A9270-GY; J7030; J7120; S1016

== ENCOUNTER 2018-04-02 09:22 | Day surgery (SDC) | payer OTHER ==
[~2018-04-02 09:22] MED LIST changes: +FENTANYL 250MCG/5ML VIAL ONE; +MIDAZOLAM HCL 2 MG/2 ML VIAL ONE; +fentaNYL CITRATE/PF 100 MCG/ 2ML AMP ONE
[2018-04-04 13:59] VITALS: BP 101/62
== END 2018-04-02 14:08 ==
LOC: OUT 09:22 → OPSURG 14:08
PROVIDERS: ATTEND Surgery
DX: E66.01 Morbid (severe) obesity due to excess calories (principal); E11.9 Type 2 diabetes mellitus without complications; I10 Essential (primary) hypertension; E78.00 Pure hypercholesterolemia, unspecified; G47.30 Sleep apnea, unspecified
CPT/HCPCS: 43235; J0690; J1100; J1200; J2001; J2250; J2405; J2704; J3010; 43775; A9270-GY; J7120